=== PATIENT | female | born 1990 | race Caucasian/White ===

== ENCOUNTER 2016-08-13 20:14 | Emergency (ER) | payer OTHER ==
[2016-08-13 20:31] VITALS: TEMP 98.2; BMI 30.6
[2016-08-13 20:57] LABS: AMORPHOUS OCC; LEUKOCYTES/URINE 2+ (NEGATIVE); NITRITE/URINE NEG (NEGATIVE); URINE OCCULT BLOOD 2+ (NEG/TRACE); WBC/URINE TNTC (0-5)
[2016-08-13] MEDS ORDERED: NITROFURANTOIN 50 MG CAP PO ONE (23:01)
--- NOTE | 2016-08-13 23:03 | EDPRACDOC ---
- General Information Chief Complaint: Female Urogenital Problems Stated Complaint: 12 WKS PREG ? BLADDER INFECTION Time Seen by Provider: 08/13/16 22:48 Information Source: Patient Home Medications: Home Medications Nitrofurantoin Monohyd/M-Cryst [Macrobid 100 mg Capsule] 100 mg PO BID #20 capsule 08/14/16 Vits W-Ca,Fe,FA(<1Mg) [] 1 each PO DAILY #60 tablet 08/14/16 Promethazine [Phenergan] 25 mg PO Q8H PRN #30 tab 08/14/16 Allergies/Adverse Reactions: Allergies Allergy/AdvReac Type Severity Reaction Status Date / Time No Known Allergies Allergy Verified 01/04/16 00:39 - History of Present Illness HPI: PATIENT IS 12 WEEKS . DEVELOPED DYSURIA AND RIGHT FLANK PAIN OVER LAST FEW DAYS SIMILAR TO PRIOR UTIS. NO N/V. NO FEVER. 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 Denies: Fever, Abdominal Pain, Vaginal Discharge, Vaginal Itching ED Past Medical History - History Reviewed Yes Nurses notes reviewed and agree except as marked Travel Outside of [place] in the Last 3 Months?: No - Patient Medical History Psychological History: Denies: Depression Surgical History: Reports: Appendectomy, Tonsillectomy/Adnoidectomy. Denies: Hysterectomy - Social Medical History Smoking Status: Never smoker ETOH: None Substance Abuse: None Lives With: Family Lives In: Home EDM Review of Systems - Review of Systems ROS Negative Except as Marked: Yes All systems reviewed and were negative except as marked Constitutional: No Symptoms Reported. negative: Fever, Chills, Weakness, Fatigue, Loss of Appetite Eyes: No Symptoms Reported. negative: Redness, Blurred Vision, Double Vision, Discharge, Pain, Light Sensitive, Photophobia Ears: No Symptoms Reported. negative: Pain, Hearing Loss, Drainage, Ear Pulling Throat: No Symptoms Reported. negative: Pain, Swelling Nose: No Symptoms Reported. negative: Congestion, Bleeding, Discharge, Injection, Swelling, Deformity, Ecchymosis, Tender, Abrasion, Laceration Mouth: No Symptoms Reported. negative: Pain, Drooling Respiratory: No Symptoms Reported. negative: Cough, Brassy Cough, Barky Cough, Shortness of Breath, Wheezing, Hemoptysis Cardiovascular: No Symptoms Reported. negative: Chest Pain, Palpitations, Syncope, Edema, Orthopnea, PND, Skin Mottling, Cyanosis Gastrointestinal: No Symptoms Reported. negative: Pain, Constipation, Nausea, Vomiting, Diarrhea, Melena, Formula Intolerance Genitourinary: Dysuria. negative: Bleeding, Discharge, Frequency, Hematuria, , Testicular Pain Neurological: No Symptoms Reported. negative: Headache, Dizziness, Seizure, Numbness, Weakness, Speech Difficulty, Gait Difficulty Musculoskeletal: No Symptoms Reported. negative: Neck, Chestwall, Ribs, Back, Shoulder, Arm, Elbow, Forearm, Wrist, Hand, Pelvis, Hip, Femur, Knee, Leg, Ankle , Foot Integumentary: No Symptoms Reported. negative: Itching, Rash, Bruising, Wound Allergic/Immunologic: No Symptoms Reported. negative: Hives, Itching Hematologic: No Symptoms Reported. negative: Lymphadenopathy, Easy Bruising, Easy Bleeding Endocrine: No Symptoms Reported. negative: Weight Gain, Weight Loss Psychiatric: No Symptoms Reported. negative: Anxiety, Depression, Hallucinations, Insomnia, Suicidal - Physical Exam Constitutional: Alert (Awake), No apparent distress Oriented to: Time, Person, Place Last recorded Vital Signs: Last Vital Signs Temp 98.2 F 08/13/16 20:28 Pulse 94 08/13/16 20:28 Resp 18 08/13/16 20:28 BP 130/62 08/13/16 20:28 Pulse Ox 100 08/13/16 20:28 Oxygen Pulse Oxygen Saturation 100 O2 Device Room Air Oxygen Flow Rate Fraction of Inspired Oxygen ( FIO2) - HEENT Head: Normal ( normocephalic) Eye Exam: Normal (PERRL, EOMI, Sclera white) Oropharynx: Normal (Pharynx:Moist without exudate,Gums-no swelling) Tympanic Membrane: Normal ENT EAC: Normal TMJ: Normal Nose: No Symptoms Reported (septum midline) Neck: Normal (FROM, trachea at midline) - Respiratory/Cardiovascular Respiratory: Normal - CTA (BBS clear to auscultation without adventitious sounds ) Cardiovascular: Normal (RRR without murmur, gallop or rub) - GI Auscultation: Normal (NABS) Palpation: Normal (Soft,No rebound or guarding, non distended) Tenderness: Non tender Sexton's Sign: Negative - Musculoskeletal Back: Normal (Non-Tender) Extremities: Normal (Normal tone, Pulses 2+ No cyanosis or edema, FROM) - Integumentary Skin: Normal, Warm, Dry Lymphatics: Normal (no adenopathy) - Neurologic Memory Impaired: Normal Motor Function: Normal (Normal tone, Pulses 2+ No cyanosis or edema, FROM) Cranial Nerve: Normal (CN II-X11 intact sensation, strength 5/5) Cerebellar: Normal Mood Description: Normal Perception: Normal - Re-evaluation Re-evaluation 1 Re-evaluation Time: 00:01 (FHT AT 170) - Results Urine Color Yellow 08/13/16 20:32 Urine Clarity Sl cldy 08/13/16 20:32 Urine pH 8.0 (5.0-8.0) 08/13/16 20:32 Ur Specific [place] 1.010 (1.003-1.035) 08/13/16 20:32 Urine Protein Neg (NEG/TRACE) 08/13/16 20:32 Urine Glucose (UA) Neg (NEGATIVE) 08/13/16 20:32 Urine Ketones Neg (NEGATIVE) 08/13/16 20:32 Urine Occult Blood 2+ (NEG/TRACE) H 08/13/16 20:32 Urine Nitrite Neg (NEGATIVE) 08/13/16 20:32 Urine Bilirubin Neg (NEGATIVE) 08/13/16 20:32 Urine Urobilinogen <2.0 MG/DL (0-1) 08/13/16 20:32 Ur Leukocyte Esterase 2+ (NEGATIVE) H 08/13/16 20:32 Urine RBC 10-20 (0-5) H 08/13/16 20:32 Urine WBC Tntc (0-5) H 08/13/16 20:32 Urine WBC Clumps Present (NONE) H 08/13/16 20:32 Ur Epithelial Cells 2+ 08/13/16 20:32 Amorphous Sediment Occ 08/13/16 20:32 Urine Bacteria 2+ (NEG/FEW) H 08/13/16 20:32 Urine Mucus Occ (NEG/OCC) 08/13/16 20:32 Lab Results 08/13/16 20:32 Urine Color Yellow Urine Clarity Sl cldy Urine pH 8.0 Ur Specific [place] 1.010 Urine Protein Neg Urine Glucose (UA) Neg Urine Ketones Neg Urine Occult Blood 2+ H Urine Nitrite Neg Urine Bilirubin Neg Urine Urobilinogen <2.0 Ur Leukocyte Esterase 2+ H Urine RBC 10-20 H Urine WBC Tntc H Urine WBC Clumps Present H Ur Epithelial Cells 2+ Amorphous Sediment Occ Urine Bacteria 2+ H Urine Mucus Occ Decision Time to Discharge: 00:02 - Departure Yes I personally saw and evaluated the patient. Disposition: Home Condition: Good Final Diagnosis: Early stage of UTI (urinary tract infection) Qualifiers: Urinary tract infection type: acute cystitis Hematuria presence: without hematuria Qualified Code(s): N30.00 - Acute cystitis without hematuria Instructions: Urinary Tract Infection in Women (ED), Dysuria Education/Counseling Given To: Patient Education/Counseling Given Regarding: Diagnosis, Treatment, Prognosis, Follow Up Referrals: None,No Provider [Primary Care Provider] - One Week Paulina Noguera MD [Staff Physician] - One Week Prescriptions: New Nitrofurantoin Monohyd/M-Cryst [Macrobid 100 mg Capsule] 100 mg PO BID #20 capsule Vits W-Ca,Fe,FA(<1Mg) [] 1 each PO DAILY #60 tablet Promethazine [Phenergan] 25 mg PO Q8H PRN #30 tab PRN Reason: Nausea/Vomiting
[2016-08-14 00:55] VITALS: BP 121/58; PULSE 86
== END 2016-08-14 00:55 | disposition home or self-care (01) ==
LOC: ED 20:14
DX: O23.41 Unspecified infection of urinary tract in pregnancy, first trimester (principal); Z3A.12 12 weeks gestation of pregnancy
CPT/HCPCS: 81001; 84702; 99283; J3490